=== PATIENT | female | born 1995 | race Caucasian/White ===

== ENCOUNTER 2024-06-09 23:12 | Emergency (ER) | payer MEDICAID, SELFPAY ==
[2024-06-10 00:01] VITALS: BP 129/70; PULSE 68; TEMP 36.9; O2SAT 99; BMI 47.5
--- NOTE | 2024-06-10 01:36 | ED.DIZZY1 ---
HPI - Dizziness General Chief Complaint: Dizziness Stated Complaint: dizzy Time Seen by Provider: 06/10/24 01:32 Source: patient Mode of arrival: walk-in Limitations: no limitations History of Present Illness HPI Narrative: presents complaining of dizziness. dizzy spells on and off for past year. Workup via cardiology was neg. Takes meclizine and it takes the edge off. Dizziness tonight at work. Brought to ER by co worker. No extremity numbness or weakness. No fever or headache or ear pain. States dizziness has improved some now and she does not want any meclizine at this time as it makes her tired Related Data Allergies Allergy/AdvReac Type Severity Reaction Status Date / Time No Known Drug Allergies Allergy Verified 06/10/24 00:05 Review of Systems ROS Status of ROS 10 or more systems reviewed and unremarkable except as noted in history and below Exam Constitutional Vital Signs, click to edit/add: Last Vital Signs Temp 98.4 F 06/10/24 00:01 Pulse 68 06/10/24 00:01 Resp 18 06/10/24 00:01 BP 129/70 06/10/24 00:01 Pulse Ox 99 06/10/24 00:01 O2 Del Method Room Air 06/10/24 00:01 Common normals: no apparent distress, average body habitus, oriented x3, no limitations, healthy appearing, alert and well nourished [facility] Common normals: normocephalic and head/scalp atraumatic Tympanic membrane: TM normal on the right and TM normal on the left Eye Common normals: EOMs intact bilaterally and conjunctivae normal Respiratory Common normals: normal respiratory effort, no retractions, no use of accessory muscles and clear to auscultation bilaterally Cardio Common normals: regular rate, regular rhythm, S1 normal heart sound and S2 normal heart sound GI Common normals: Normal to inspection, nondistended, normoactive bowel sounds present and soft to palpation Extremity Common normals: normal to inspection Neuro Common normals: oriented x3, CN's II-XII intact bilaterally, moves all extremities and no focal motor deficits Course Vital Signs Vital signs: Vital Signs Temperature 98.4 F 06/10/24 00:01 Pulse Rate 68 06/10/24 00:01 Respiratory Rate 18 06/10/24 00:01 Blood Pressure 129/70 06/10/24 00:01 Pulse Oximetry 99 06/10/24 00:01 Oxygen Delivery Method Room Air 06/10/24 00:01 Temperature 98.4 F 06/10/24 00:01 Pulse Rate 68 06/10/24 00:01 Respiratory Rate 18 06/10/24 00:01 Blood Pressure 129/70 06/10/24 00:01 Pulse Oximetry 99 06/10/24 00:01 Oxygen Delivery Method Room Air 06/10/24 00:01 MDM - Dizziness MDM Narrative Medical decision making narrative: patient with past history of recurrent episodes of dizziness for a year. Episode again tonight -mild . treated with fluids and antivert prior to discharge. Also mild dental abscess of her front lower tooth. Prescribed amoxicillin.. CBC WNL. Mild elevation of glucose. discharged home to follow up with family doctor Lab Data Labs: Lab Results 06/10/24 06/10/24 Range/Units 02:04 02:12 WBC 8.5 (4.0-11.0) 10^3/uL RBC 4.19 L (4.20-5.40) 10^6/uL Hgb 13.4 (12.0-16.0) g/dL Hct 39.0 (36.0-48.0) % MCV 93.1 (81.0-99.0) fL MCH 32.0 (26.7-34.0) pg MCHC 34.4 (29.9-35.2) g/dL RDW 11.8 (11.0-15.0) % Plt Count 289 (150-450) 10^3/uL MPV 10.0 (9.5-13.5) fL Neut % (Auto) 46.3 (43.0-75.0) % Lymph % (Auto) 43.0 (20.5-60.0) % Schleicher % (Auto) 7.9 (1.7-12.0) % Eos % (Auto) 1.9 (0.9-7.0) % Baso % (Auto) 0.5 (0.2-2.0) % Neut # (Auto) 4.0 (1.4-6.5) 10^3/uL Lymph # (Auto) 3.7 (1.2-3.8) 10^3/uL Schleicher # (Auto) 0.7 (0.3-0.8) 10^3/uL Eos # (Auto) 0.2 (0.0-0.7) 10^3/uL Baso # (Auto) 0.0 (0.0-0.1) 10^3/uL Abs Immat Gran (auto) 0.03 (0.00-0.03) 10^3/uL Imm/Tot Granulo (auto) 0.4 (0.0-0.5) % Sodium 136 (136-145) mmol/L Potassium 4.1 (3.5-5.1) mmol/L Chloride 102 (98-107) mmol/L Carbon Dioxide 24.7 (21.0-32.0) mmol/L Anion Gap 13.4 BUN 10.0 (7.0-18.0) mg/dL Creatinine 0.91 (0.55-1.02) mg/dL Est GFR ( Amer) >60 (>=60) Est GFR (Non-Af Amer) >60 (>=60) BUN/Creatinine Ratio 11.0 Glucose 114 H (74-106) mg/dL Calcium 8.6 (8.5-10.1) mg/dL Urine Color Lt. yellow (YELLOW) Urine Clarity Clear (CLEAR) Urine pH 6.0 (5.0-9.0) Ur Specific [place] <=1.005 A (1.005-1.025) Urine Protein Negative (NEG/TRACE) mg/dL Urine Glucose (UA) Negative (NEGATIVE) mg/dL Urine Ketones Negative (NEGATIVE) mg/dL Urine Occult Blood Negative (NEGATIVE) Urine Nitrite Negative (NEGATIVE) Urine Bilirubin Negative (NEGATIVE) Urine Urobilinogen 0.2 (0.2-1.0) EU/dL Ur Leukocyte Esterase Negative (NEGATIVE) Discharge Plan Discharge Stand Alone Forms: Work/School Release, Portal Instructions Chief Complaint: Dizziness Clinical Impression: Dizziness, Dental abscess Patient Disposition: Home, Self-Care Condition: Good Print Language: Ukrainian Instructions: Dental Abscess (ED), Vertigo (ED), Dizziness (ED) Referrals: Physician,Non-Staff, MD [Primary Care Provider] - 1 week
[2024-06-10] MEDS: AMOXICILLIN 500 MG CAPSULE 1000 MG PO (02:10)
[2024-06-10] MEDS: 0.9 % SODIUM CHLORIDE 1,000 ML 999 ML IV (02:10)
[2024-06-10 02:11] LABS: Basophils Percent Auto 0.5 % (0.2-2.0); Eosinophils Absolute Auto 0.2 10^3/uL (0.0-0.7); Eosinophils Percent Auto 1.9 % (0.9-7.0); Hemoglobin 13.4 g/dL (12.0-16.0); Immature Granulocytes Abs Auto 0.03 10^3/uL (0.00-0.03); Immature Granulocytes Pct Auto 0.4 % (0.0-0.5); Lymphocytes Absolute Auto 3.7 10^3/uL (1.2-3.8); Mean Corpuscular HGB Conc 34.4 g/dL (29.9-35.2); Mean Corpuscular Volume 93.1 fL (81.0-99.0); Monocytes Absolute Auto 0.7 10^3/uL (0.3-0.8); Monocytes Percent Auto 7.9 % (1.7-12.0); Neutrophils Percent Auto 46.3 % (43.0-75.0); Platelet Count 289 10^3/uL (150-450); Red Blood Count 4.19 10^6/uL (4.20-5.40); Red Cell Distribution Width 11.8 % (11.0-15.0); White Blood Count 8.5 10^3/uL (4.0-11.0)
[2024-06-10 02:19] LABS: Anion Gap 13.4; Calcium 8.6 mg/dL (8.5-10.1); Carbon Dioxide 24.7 mmol/L (21.0-32.0); Chloride 102 mmol/L (98-107); Estimated GFR (African America >60 (>=60); Estimated GFR (Non-African Ame >60 (>=60); Glucose 114 mg/dL (74-106); Potassium 4.1 mmol/L (3.5-5.1); Sodium 136 mmol/L (136-145)
[2024-06-10 03:16] LABS: Bilirubin Urine NEGATIVE (NEGATIVE); Blood Urine NEGATIVE (NEGATIVE); Clarity Urine CLEAR (CLEAR); Color Urine LT. YELLOW (YELLOW); Glucose Urine UA NEGATIVE (NEGATIVE); Ketones Urine NEGATIVE (NEGATIVE); Leukocyte Esterase Urine NEGATIVE (NEGATIVE); Nitrite Urine NEGATIVE (NEGATIVE); Protein Urine NEGATIVE (NEG/TRACE); Specific Gravity Urine <=1.005 (1.005-1.025); Urobilinogen Urine 0.2 EU/dL (0.2-1.0)
[2024-06-10 03:19] LABS: Urine Microscopic Indicated NO
[2024-06-10] MEDS: MECLIZINE HCL 12.5 MG TABLET 25 MG PO (03:20)
== END 2024-06-10 03:35 | disposition home or self-care (01) ==
PROVIDERS: Emergency Provider Internal Medicine
DX: R42 Dizziness and giddiness (principal); K04.7 Periapical abscess without sinus
CPT/HCPCS: 36415; 80048; 81003; 85025; 99283